=== PATIENT | male | born 1980 | race Caucasian/White ===

== ENCOUNTER 2022-05-26 17:01 | Emergency (ER) | payer OTHER ==
[~2022-05-26] VITALS: Ht 180.3 cm; Wt 96.2 kg
[~2022-05-26 17:01] MED LIST: CIPR500 PO; CYCL10 PO; DIAZ5 PO; HYDACE5 PO; HYDACE5325 PO; HYDACE7.5 PO; IBUP600 PO; META400 PO; NAPR500 PO; OXYACE10 PO; PENVK500 PO; PROM25 PO
[2022-05-26] MEDS ORDERED: HYDPAM50 PO (19:58)
== END 2022-05-26 20:14 | disposition home or self-care (01) ==
LOC: ER 17:01
DX: G62.9 Polyneuropathy, unspecified (principal); F17.220 Nicotine dependence, chewing tobacco, uncomplicated
CPT/HCPCS: 93970; 99283-25

== ENCOUNTER 2024-06-15 00:33 | Emergency (ER) | payer OTHER ==
[~2024-06-15] VITALS: Ht 180.3 cm; Wt 96.2 kg
[~2024-06-15 00:33] MED LIST changes: +HYDPAM50 PO
[2024-06-15 00:55] VITALS: BP 203/115
== END 2024-06-15 01:37 | disposition home or self-care (01) ==
LOC: ER 00:33
DX: F32.A Depression, unspecified (principal); T74.11XA Adult physical abuse, confirmed, initial encounter; Z59.89 Other problems related to housing and economic circumstances; F17.200 Nicotine dependence, unspecified, uncomplicated; Z79.899 Other long term (current) drug therapy
CPT/HCPCS: 99284